=== PATIENT | female | born 1970 | race Caucasian/White ===

== ENCOUNTER 2020-08-08 13:49 | Emergency (ER) | payer OTHER ==
[2020-08-08] MEDS ORDERED: CYCLOBENZAPRINE10 M1 PO (14:57)
[2020-08-08 15:34] VITALS: BP 132/94
== END 2020-08-08 15:43 | disposition home or self-care (01) ==
LOC: ED 13:49
DX: M62.838 Other muscle spasm (principal); M41.9 Scoliosis, unspecified; F17.210 Nicotine dependence, cigarettes, uncomplicated; Z79.1 Long term (current) use of non-steroidal anti-inflammatories (NSAID)
CPT/HCPCS: J2360

== ENCOUNTER 2024-01-18 08:41 | Emergency (ER) | payer OTHER ==
[~2024-01-18] VITALS: Ht 162.6 cm; Wt 67.7 kg
[~2024-01-18 08:41] MED LIST: CYCLOBENZAPRINE10 M1 PO
[2024-01-18] MEDS ORDERED: OFLOXACIN 5 ML5 M1 OT (09:34)
[2024-01-18 09:56] VITALS: BP 141/92
== END 2024-01-18 09:58 | disposition home or self-care (01) ==
LOC: ED 08:41
DX: H60.92 Unspecified otitis externa, left ear (principal); F17.210 Nicotine dependence, cigarettes, uncomplicated

== ENCOUNTER 2024-02-04 11:07 | Emergency (ER) | payer OTHER ==
[~2024-02-04] VITALS: Ht 162.6 cm; Wt 68.1 kg
[~2024-02-04 11:07] MED LIST changes: +OFLOXACIN 5 ML5 M1 OT
[2024-02-04 11:21] VITALS: BP 145/88
[2024-02-04] MEDS ORDERED: Amoxicillin/Clavulanate K+ 875/125 MG TAB PO ONE (12:45)
[2024-02-04] MEDS ORDERED: AMOXICILLIN AND1 TA2 PO (12:55)
== END 2024-02-04 13:05 | disposition home or self-care (01) ==
LOC: ED 11:07
DX: H66.92 Otitis media, unspecified, left ear (principal); M54.2 Cervicalgia; F17.200 Nicotine dependence, unspecified, uncomplicated